=== PATIENT | female | born 1995 | race Caucasian/White ===

== ENCOUNTER 2016-11-09 09:47 | Emergency (ER) | payer SELFPAY ==
[2016-11-09 10:05] VITALS: BP 130/85
--- NOTE | 2016-11-09 10:13 | UC ---
Bite Injury/Animal HPI - HPI Summary HPI Summary: cat bite left distal middle finger---happened about 1 hour ago at work while scruffing a cat---the cat is available for observation, pt last tetanus was 6 hours ago (refused update today when offered) - History of Current Complaint Hx Obtained From: Patient Hx Last Menstrual Period: 11/29/13 ?: No Severity Currently: Mild Severity Initially: Mild Pain Intensity: 4 Pain Scale Used: 0-10 Numeric Onset/Duration: Sudden Onset, Lasting Minutes - happene about 1 hour ago, Still Present Type of Bite: Animal Has Animal Been Immunized?: Yes - but is likely not up to date Character: Puncture Hx of Bite: Provoked by: - getting scruffed in the vets office Animal Available for Observation: Yes Animal Control Notified: Yes <Yolanda Nicolas - Last Filed: 11/09/16 10:45> - HPI Summary HPI Summary: CORRECTION - LAST TETANUS WAS 6 YEARS AGO <Ying Vega - Last Filed: 11/09/16 13:00> - History of Current Complaint Chief Complaint: UCBiteInjury Stated Complaint: CAT BITE Time Seen by Provider: 11/09/16 10:12 - Allergies/Home Medications Allergies/Adverse Reactions: Allergies Allergy/AdvReac Type Severity Reaction Status Date / Time No Known Allergies Allergy Verified 12/09/13 15:11 Home Medications: Home Medications Control 1 tab PO DAILY 11/09/16 [History] PMH/Surg Hx/FS Hx/Imm Hx Previously Healthy: Yes - Surgical History Surgical History: Yes Surgery Procedure, Year, and Place: wisdom teeth - Family History Known Family History: Positive: None Family History: no reported cardiovascular issues reported in family lineage - Social History Occupation: Employed Full-time Lives: With Family Alcohol Use: None Substance Use Type: None Smoking Status (MU): Never Smoked Tobacco <Yolanda Nicolas - Last Filed: 11/09/16 10:45> Review of Systems Constitutional: Negative Skin: Other - pw with scant bleeding left middle finger Eyes: Negative ENT: Negative Respiratory: Negative Cardiovascular: Negative Gastrointestinal: Negative Genitourinary: Negative Motor: Negative Neurovascular: Negative Musculoskeletal: Negative Neurological: Negative Psychological: Negative All Other Systems Reviewed And Are Negative: Yes <Yolanda Nicolas - Last Filed: 11/09/16 10:45> Physical Exam Triage Information Reviewed: Yes Appearance: Well-Appearing, No Pain Distress, Well-Nourished Vital Signs: Initial Vital Signs Temp 99.5 F 11/09/16 10:04 Pulse 104 11/09/16 10:04 Resp 16 11/09/16 10:04 BP 130/85 11/09/16 10:04 Pulse Ox 100 11/09/16 10:04 Vital Signs Reviewed: Yes Eye Exam: Normal Eyes: Positive: Conjunctiva Clear ENT Exam: Normal ENT: Positive: Normal ENT inspection, Hearing grossly normal, TMs normal. Negative: Nasal congestion, Nasal drainage, Tonsillar swelling, Tonsillar exudate, Trismus, Muffled/hoarse voice Dental Exam: Normal Neck exam: Normal Neck: Positive: Supple, Nontender, No Lymphadenopathy Respiratory Exam: Normal Respiratory: Positive: Chest non-tender, No respiratory distress, No accessory muscle use Cardiovascular Exam: Normal Cardiovascular: Positive: RRR, Pulses Normal, Brisk Capillary Refill Musculoskeletal Exam: Normal Musculoskeletal: Positive: Strength Intact, ROM Intact, No Edema Neurological Exam: Normal Neurological: Positive: Alert, Muscle Tone Normal Psychological Exam: Normal Skin Exam: Normal Skin: Positive: Other - pw to distal left middle finger <Yolanda Nicolas - Last Filed: 11/09/16 10:45> Vital Signs: Initial Vital Signs Temp 99.5 F 11/09/16 10:04 Pulse 104 11/09/16 10:04 Resp 16 11/09/16 10:04 BP 130/85 11/09/16 10:04 Pulse Ox 100 11/09/16 10:04 <Ying Vega - Last Filed: 11/09/16 13:00> Bite Injury Course/Dx - Course Course Of Treatment: soap and warm water soaks, augmentin, dressing follow with Dr. Virgen - Differential Dx/Diagnosis Differential Diagnosis/HQI/PQRI: Joint Space Infection, Puncture, Superficial Infection, Deep Space Infection, Tenosynovitis Provider Diagnoses: Cat Bite Left Middle finger <Yolanda Nicolas - Last Filed: 11/09/16 10:45> Discharge <Yolanda Nicolas - Last Filed: 11/09/16 10:45> <Ying Vega - Last Filed: 11/09/16 13:00> - Discharge Plan Condition: Stable Disposition: HOME Prescriptions: Amoxicillin/Clavulanate TAB* [Augmentin TAB 875*] 875 mg PO BID #20 tab Patient Education Materials: Amoxicillin/Clavulanate Potassium (By mouth), Animal Bite (ED), Warm Compress or Soak (ED) Referrals: Katlyn Virgen MD [Medical Doctor] - 3 Days
== END 2016-11-09 10:47 | disposition home or self-care (01) ==
LOC: UCEAST 09:47
DX: S61.233A Puncture wound without foreign body of left middle finger without damage to nail, initial encounter (principal); W55.01XA Bitten by cat, initial encounter; Y93.89 Activity, other specified; Y92.89 Other specified places as the place of occurrence of the external cause
CPT/HCPCS: 99212; G0463